=== PATIENT | female | born 1970 | race Caucasian/White ===

== ENCOUNTER 2018-02-10 19:14 | Inpatient (IN) ==
--- NOTE | 2018-02-10 19:44 | Emergency Department Note ---
Disposition Clinical Impression: Acute hepatitis, Biliary obstruction, Jaundice, Cholecystitis Disposition: Admitted As Inpatient Condition: Undetermined Referrals: Piero Jose MD [Primary Care Provider] - Forms: ED Satisfaction Letter, Work/School Release Time of Disposition: 20:48 Abdominal Pain HPI - General Chief Complaint: ED Abdominal Pain Stated Complaint: sent by for abnormal ct/gallbladder" Time Seen by Provider: 02/10/18 19:25 Source: patient Mode of arrival: ambulatory Limitations: no limitations Nursing Notes Reviewed: Yes Vital Signs Reviewed: Yes - History of Present Illness HPI Narrative: 48-year-old female with no previous medical history arrives to the emergency department with complaint of right upper quadrant abdominal pain and skin color change of the course the past 7 days. The patient went to PCP office and they ordered outpatient CAT scan and labs. CAT scan demonstrated concerning findings for acute hepatitis versus cholecystitis versus biliary obstruction as well as elevation in bili [place] with a total bilirubin over 9. The patient is obvious jaundice upon arrival to the emergency department. The patient has associated nausea. She denies any other complaints at this time. She is very nervous about what is going on. The patient last ate roughly 30 minutes prior to arrival at roughly 1900 this evening. Pain Scale: 4 - Related Data Home Medications Medication Instructions Recorded Confirmed Vivitrol 04/14/17 Abilify 07/22/17 Buspar 07/22/17 CloNIDine 07/22/17 Melatonin 07/22/17 Vitamin D 07/22/17 07/22/17 Tylenol 02/03/18 Allergies Allergy/AdvReac Type Severity Reaction Status Date / Time amitriptyline [From Elavil] Allergy Nausea Verified 07/22/17 10:46 All systems ED: reviewed and negative except as stated. Constitutional: Denies: fever, chills, weakness ENT ED: Denies: congestion Cardiovascular: Denies: chest pain Respiratory: Denies: dyspnea Gastrointestinal: Reports: abdominal pain, nausea, vomiting. 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 Psychiatric history: Reports: anxiety, bipolar, depression - Social History Smoking status: Current every day smoker Alcohol use: Reports: none Drug use: Reports: cocaine, opiates, marijuana, IV Drug Use Physical Exam - General Limitations: no limitations General appearance: alert, in no apparent distress - Head Head exam: atraumatic, normocephalic, normal inspection - Eye Eye exam: Present: normal appearance, PERRL, EOMI, scleral icterus - ENT ENT exam: normal exam, normal oropharynx, mucous membranes moist - Neck Neck exam: Present: normal inspection, full ROM, trachea midline - Chest Chest inspection: Present: normal inspection, symmetric chest wall rise - Respiratory Respiratory exam: Present: normal lung sounds bilaterally - Cardiovascular Cardiovascular exam: Present: regular rate, normal rhythm, normal heart sounds - Abdominal Exam Abdominal exam: Present: soft, tenderness (RUQ, Epigastric). Absent: distention , guarding, rebound, rigidity - Extremities Exam Extremities exam: Present: normal inspection, full ROM. Absent: tenderness, pedal edema - Neurological Exam Neurological exam: Present: alert, oriented X3 - Skin Skin exam: Present: warm, dry, intact, normal color, other (Jaundice) Course Vital Signs Temperature 97.5 F L 02/10/18 19:17 Pulse Rate 63 02/10/18 19:17 Respiratory Rate 16 02/10/18 19:17 Blood Pressure 116/75 02/10/18 19:17 O2 Sat by Pulse Oximetry 96 02/10/18 19:17 Temperature 97.5 F L 02/10/18 19:41 Pulse Rate 63 02/10/18 19:41 Respiratory Rate 16 02/10/18 19:41 Blood Pressure 116/75 02/10/18 19:41 O2 Sat by Pulse Oximetry 96 02/10/18 19:41 Oxygen Delivery Oxygen Delivery Room Air Abdominal Pain - MDM Narrative Medical decision making narrative: Patient's workup in the emergency department demonstrates acute findings for concern for biliary obstruction versus cholecystitis versus hepatic dysfunction. The patient's bilirubin is elevated. Patient apparently has a history of IVDU as well as hepatitis upon further questioning. After speaking with Dr. Bolden in general surgery he stated the patient will likely need ERCP. The patient will be admitted to Dr. Bolden service and general surgery requesting a stepdown unit. Orders been placed by Dr. [place] and Gen. surgery. No further recommendations at this time. The patient was made aware and agrees to plan. No further questions or concerns by patient. - Medical Records Medical records reviewed: Yes I reviewed the patient's medical records. - Lab Data Lab results reviewed: Yes I reviewed the patient's lab results. Lab Results 02/10/18 Range/Units 19:37 Total Bilirubin 10.0 H (0.3-1.0) mg/dL Direct Bilirubin 7.1 H (0.0-0.2) mg/dL Indirect Bilirubin 2.9 H (0.0-1.2) mg/dL AST 123 H (13-39) Units/L ALT > 500 H (7-52) Units/L Alkaline Phosphatase 444 H (34-104) Units/L Serum Total Protein 6.5 (6.4-8.9) g/dL Albumin 3.3 L (3.5-5.7) g/dL Globulin 3.2 (2.4-3.5) g/dL Albumin/Globulin Ratio 1.0 L (1.1-2.2) - Radiology Data Radiology results reviewed: Yes I reviewed the patient's radiology results. Gallbladder Ultrasound 02/10/18 19:26 IMPRESSION: Contracted gallbladder with significant gallbladder wall thickening as noted on previous CT. Small quantity of pericholecystic fluid. No acute features are seen. The findings are nonspecific and are likely related to the patient's underlying liver disease. Otherwise unremarkable right upper quadrant ultrasound. The hepatic findings noted by CT are not as clearly seen by ultrasound. D/ / 02/10/2018 20:25:57 Sal Cadet MD / [facility] Interpreting Provider: Sal Cadet MD - EKG Data EKG attestation: Yes I reviewed and interpreted this EKG. EKG results narrative: Heart rate 63 beats for minute. Normal sinus rhythm. No ST elevation or ST depression noted. No acute changes noted.
--- NOTE | 2018-02-10 20:08 | General Surg History&Physical ---
Date of Encounter: 02/10/18 Time of Encounter: 20:05 Assessment and Plan (1) Cholelithiasis Current Visit: Yes Status: Acute 48F with cholecystitis and intrahepatic ductal dilatation, concerning for choledocholithiasis; NPO IVF abx consult GI for ERCP plan for surgery after ERCP The assessment and plan as outlined above was discussed with the patient and/or family members who expressed understanding and agreement. All questions were answered. Qualifiers: Cholelithiasis location: gallbladder Cholecystitis presence: with cholecystitis Cholecystitis acuity: acute and chronic Biliary obstruction: with biliary obstruction Qualified Code(s): K80.13 - Calculus of gallbladder with acute and chronic cholecystitis with obstruction (2) Dilated intrahepatic bile duct Current Visit: Yes Status: Acute The assessment and plan as outlined above was discussed with the patient and/or family members who expressed understanding and agreement. All questions were answered. History of Present Illness Chief complaint: abdominal pain HPI: Ms. Landeros is a 48 year old female with a PMH significant for hep C, anxiety, depression who presents with worsening RUQ/epigastric pain with associated nausea and vomiting. In addition the patient reports pain that radiates to her shoulders. Over the last 7 days the patient states she noticed her skin starting turning yellow. She was evaluated by her PCP who ordered a CT scan, which was evaluated and interpreted by me, which demonstrates periportal edema, cholelithiasis and intrahepatic ductal diliation. Abdominal US still pending; She now presents to the ED for further evaluation; Past Med Surg Social Fam HX - Past Medical History Medical history: other (hepatitis C) Additional medical history: OD 12/31/15. HEP C Psychiatric history: anxiety, bipolar, depression - Past Surgical History Surgical History: no surgical history, other (tubal ligation) - Social History Smoking Status: Current every day smoker Smokeless Tobacco Status: No Alcohol use: none Drug use: cocaine, opiates, marijuana, IV Drug Use - Additional Family History Additional family history: non contributory Medications and Allergies Vivitrol 04/14/17 [History] Abilify 07/22/17 [History] Buspar 07/22/17 [History] CloNIDine 07/22/17 [History] Melatonin 07/22/17 [History] Vitamin D 07/22/17 [History] Tylenol 02/03/18 [History] 3 Allergy/AdvReac Type Severity Reaction Status Date / Time amitriptyline [From [facility]] Allergy Nausea Verified 07/22/17 10:46 Review of Systems All systems PM: The remainder of the systems were reviewed and are negative General Surgery Exam Initial Vital Signs Temp Pulse Resp BP Pulse Ox 97.5 F L 63 16 116/75 96 02/10/18 19:17 02/10/18 19:17 02/10/18 19:17 02/10/18 19:17 02/10/18 19:17 - General physical appearance no distress - Eyes other (scleral icterus) - ENT normocephalic - Neck no lymphadectomy - Respiratory normal expansion, normal respiratory effort - Cardiovascular Cardiovascular exam: Present: RRR - Abdomen Abdomen general surgery: Present: soft, tender Abdominal Tenderness: Present: epigastic, RUQ ((+)duran's sign) - Integumentary Integumentary general surgery: Present: warm and dry, other (jaundice) - Neurologic Present: CN 2-12 grossly intact - Musculoskeletal Present: normal posture - Psychiatric Psychiatric general surgery: Present: A&Ox3 Results - Labs All other labs normal.
[2018-02-10 20:10] LABS: Alanine Aminotransferase > 500 Units/L (7-52); Albumin 3.3 g/dL (3.5-5.7); Alkaline Phosphatase 444 Units/L (34-104); Aspartate Amino Transferase 123 Units/L (13-39); Bilirubin,Direct 7.1 mg/dL (0.0-0.2); Bilirubin,Indirect 2.9 mg/dL (0.0-1.2); Globulin 3.2 g/dL (2.4-3.5); Total Protein 6.5 g/dL (6.4-8.9)
[2018-02-10] MEDS ORDERED: Ondansetron ODT 4 MG TAB.RAPDIS SL PRN (20:30)
--- NOTE | 2018-02-10 20:32 | Emergency Department Note ---
Disposition Clinical Impression: Acute hepatitis Disposition: Still a Patient Forms: ED Satisfaction Letter, Work/School Release General Adult HPI - General Chief complaint: ED Abdominal Pain Stated complaint: sent by for abnormal ct/gallbladder" Time Seen by Provider: 02/10/18 19:25 Source: patient Mode of arrival: ambulatory Limitations: no limitations - History of Present Illness Pain Scale: 4 - Related Data Home Medications Medication Instructions Recorded Confirmed Vivitrol 04/14/17 Abilify 07/22/17 Buspar 07/22/17 CloNIDine 07/22/17 Melatonin 07/22/17 Vitamin D 07/22/17 07/22/17 Tylenol 02/03/18 Allergies Allergy/AdvReac Type Severity Reaction Status Date / Time amitriptyline [From Elavil] Allergy Nausea Verified 07/22/17 10:46 Constitutional: Denies: fever, chills, weakness ENT ED: Denies: congestion Cardiovascular: Denies: chest pain Respiratory: Denies: dyspnea Gastrointestinal: Reports: abdominal pain, nausea, vomiting. 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 I agree with the documented findings, disposition and treatment plan as described except to the extent set forth below. Patient seen with emergency medicine resident Dr. Max Jordan, Please see a copy of his note for details of the H&P, ED evaluation, management and disposition. I have independently evaluated the patient and confirmed appropriate portions of the history and physical exam. Briefly: A 48-year-old female referred by her primary care provider Dr. ESPARZA , for hepatitis. Patient is former IV drug user. Patient is jaundiced. Patient had surgical consult getting screening labs. Disposition pending. Dr. Bolden from general surgery has consulted the patient and will reevaluate Time: 20:31 Vital Signs Temperature 97.5 F L 02/10/18 19:17 Pulse Rate 63 02/10/18 19:17 Respiratory Rate 16 02/10/18 19:17 Blood Pressure 116/75 02/10/18 19:17 O2 Sat by Pulse Oximetry 96 02/10/18 19:17 Temperature 97.5 F L 02/10/18 19:41 Pulse Rate 63 02/10/18 19:41 Respiratory Rate 16 02/10/18 19:41 Blood Pressure 116/75 02/10/18 19:41 O2 Sat by Pulse Oximetry 96 02/10/18 19:41 Oxygen Delivery Oxygen Delivery Room Air Medical Decision Making - Lab Data Lab Results 02/10/18 Range/Units 19:37 Total Bilirubin 10.0 H (0.3-1.0) mg/dL Direct Bilirubin 7.1 H (0.0-0.2) mg/dL Indirect Bilirubin 2.9 H (0.0-1.2) mg/dL AST 123 H (13-39) Units/L ALT > 500 H (7-52) Units/L Alkaline Phosphatase 444 H (34-104) Units/L Serum Total Protein 6.5 (6.4-8.9) g/dL Albumin 3.3 L (3.5-5.7) g/dL Globulin 3.2 (2.4-3.5) g/dL Albumin/Globulin Ratio 1.0 L (1.1-2.2)
[2018-02-10 21:08] LABS: Basophils % 0.4 %; Eosinophils # 0.1 K/mcL (0.0-0.6); Eosinophils % 2.5 %; Hematocrit 40.6 % (35.3-44.9); Hemoglobin 13.2 g/dL (11.5-15.4); Immature Granulocytes % 0.8 % (0-4); Lymphocytes # 1.9 K/mcL (0.6-4.6); Lymphocytes % 36.7 %; Mean Corpuscular HGB Conc 32.5 g/dL (31.6-35.5); Mean Corpuscular Hemoglobin 30.6 pg (28.0-33.3); Mean Platelet Volume 12.4 fL (9.4-12.4); Monocytes # 0.5 K/mcL (0.0-1.3); Neutrophils # 2.5 K/mcL (1.6-8.9); Platelet Count 189 K/mcL (140-400); Red Blood Count 4.32 M/mcL (3.82-4.97); Red Cell Distribution Width 14.7 % (11.5-14.5); Segmented Neutrophils % 49.6 %
[2018-02-10] MEDS: OXYCODONE Oral CONC 10 MG/0.5 ML ORAL.SYG SL PRN (21:15)
[2018-02-10] MEDS: 0.9 % Sodium Chloride 1,000 ML IVC SCH ×2 (21:15→22:42)
[2018-02-10 21:17] LABS: Hepatitis B Surface Antigen Nonreactive (Nonreactive)
[2018-02-10 21:25] LABS: Hepatitis C Virus Antibody Reactive (Nonreactive)
[2018-02-10 21:30] LABS: Platelet Estimate Normal (Normal)
[2018-02-10] MEDS ORDERED: Piperacillin/Tazobactam 3.375 GM VIAL ONE (22:34)
[2018-02-10] MEDS: Nicotine 14 MG PATCH.TD24 TD SCH (22:44)
[2018-02-10] MEDS: Piperacillin/Tazobactam 3.375 GM in 0.9 % Sodium Chloride Mini Bag 100 ML IVPB SCH (22:45)
[2018-02-10] MEDS: D5% in Lactated Ringers 1,000 ML IVC SCH (23:40)
[2018-02-11 00:22] LABS: Hepatitis B Core IgM Nonreactive (Nonreactive)
[2018-02-11 00:27] LABS: Hepatitis A Antibody IgM Reactive (Nonreactive)
[2018-02-11] MEDS: OXYCODONE Oral CONC 10 MG/0.5 ML ORAL.SYG SL PRN ×3 (03:36→12:15)
[2018-02-11] MEDS: *HR* Enoxaparin 40 MG/0.4 ML SYRINGE SQ SCH (05:25)
[2018-02-11] MEDS: Piperacillin/Tazobactam 3.375 GM in 0.9 % Sodium Chloride Mini Bag 100 ML IVPB SCH ×3 (08:11→23:57)
--- NOTE | 2018-02-11 09:13 | General Surgery Progress Note ---
Date of Encounter: 02/11/18 Time of Encounter: 09:13 - Assessment and Plan (1) Cholelithiasis Current Visit: Yes Status: Acute 48F with choledocholithiasis with acute cholecystitis; plan for ERCP today if unable to get done to day, will transfer to OSH cont IV abx keep NPO may need TPN Qualifiers: Cholelithiasis location: gallbladder Cholecystitis presence: with cholecystitis Cholecystitis acuity: acute and chronic Biliary obstruction: with biliary obstruction Qualified Code(s): K80.13 - Calculus of gallbladder with acute and chronic cholecystitis with obstruction (2) Dilated intrahepatic bile duct Current Visit: Yes Status: Acute see above Subjective Patient reports: no new complaints, afebrile Objective Vital Signs - Last 8 Hours Temp Pulse Resp BP Pulse Ox 02/11/18 08:20 94 02/11/18 06:56 97.9 F 59 20 110/68 94 02/11/18 05:16 97.9 F 63 16 117/76 97 Intake and Output 02/10/18 02/11/18 02/11/18 23:59 07:59 15:59 Intake Total 1999 100 / 100 Output Total 0 / 0 800 / 800 Balance 1999 -700 / -700 Intake: IV Fluids 1999 100 / 100 0.9 % Sodium Chloride 1,000 ML 1999 @ 999 mls/hr IVC .Q1H1M [facility]I Rx# :[id number] Zosyn 3.375 GM In 0.9 % Sodium 100 / 100 Chloride (Mini-Bag +) 100 ML @ 25 mls/hr IVPB Q8HR KORI Rx#: [id number] Oral 0 / 0 0 / 0 Output: Urine 0 / 0 800 / 800 Other: Weight 70.9 kg Blood Glucose* 98 91 - General physical appearance no distress, jaundice - Eyes other (scleral icterus) - Respiratory normal expansion, normal respiratory effort - Cardiovascular Cardiovascular exam: Present: RRR - Abdomen Abdomen: Present: soft, tender Abdominal Tenderness: epigastic, RUQ - Neurologic CN 2-12 grossly intact - Psychiatric oriented to time, oriented to person, oriented to place - Labs 02/10/18 19:37 - VTE Documentation of Mechanical Device: Intermittent pneumatic compression device Consult Discharge Plan - Plan Referrals: Piero Jose MD [Primary Care Provider] -
[2018-02-11] MEDS: D5% in Lactated Ringers 1,000 ML IVC SCH ×2 (09:24→19:34)
--- NOTE | 2018-02-11 10:38 | Gastroenterology Consult Note ---
Date of Encounter: 02/11/18 Time of Encounter: 09:15 - Assessment and plan (1) Acute hepatitis Current Visit: Yes Status: Acute Assessment and plan: 48 year old female who presents with abdominal pain, nausea and vomiting. Labs were positive for Hep C and Hep A. Dr Mendez has reviewed us and CT and jaundice and LFT elevation is likely due to acute hepatitis, no ERCP planned at this time. Will do stat MRCP to rule out CBD obstruction. Recommend symptomatic treatment at this time, monitor LFTs, advise pt to avoid hepatotoxic meds and alcohol. (2) Jaundice Current Visit: Yes Status: Acute (3) Elevated LFTs Current Visit: Yes Status: Acute - Time Spent With Patient Total time spent is greater than 50% in coordination of care (as documented) at patient's floor/unit and/or counseling patient: GI History of Present Illness - Data of Consult Patient: new to practice Consult date: 02/11/18 Requesting Physician: Ronaldo Bolden MD - Consult Narrative Reason for consult: jaundice/elevated lfts History of present illness: Ms. Landeros is a 48 year old female with a PMH significant for hep C, anxiety, depression who presents with worsening RUQ/epigastric pain with associated nausea and vomiting. In addition the patient reports pain that radiates to her shoulders. Over the last 7 days the patient states she noticed her skin starting turning yellow. She was evaluated by her PCP who ordered a CT scan, which showed "hepatomegaly with moderate periportal edema and significant gallbladder wall thickening. Overall findings are nonspecific but can be seen in the setting of acute hepatitis given history of elevated LFTs. The gallbladder wall thickening could be reactive to underlying liver disease. However,acute cholecystitis cannot be excluded. Splenomegaly. the main portal vein caliber is mildly dilated, suggestive of portal hypertension". Abdominal US was done after admission that showed contracted gallbladder and no CBD dilation. Total bili was 10. Hepatitis A and Hep C were both reactive. The patient states she has been sick for the past week with nausea, vomiting, and abdominal pain. She denies diarrhea, constipation, bloody or tarry stools. Past Med Surg Social Fam HX - Past Medical History Medical history: no medical history Additional medical history: anxiety, depression Psychiatric history: anxiety, bipolar, depression - Past Surgical History Surgical History: no surgical history, other (tubal ligation) Additional surgical history: tubal, - Social History Smoking Status: Current every day smoker Packs per day: 1 Smokeless Tobacco Status: No Alcohol use: none Drug use: cocaine, opiates, marijuana, IV Drug Use Review of Systems: GI: as per [place] GENERAL: denies fever, has some chills EYES: yellow discoloration ENT: denies pain with swallowing or difficulty swallowing CARDIO: denies chest pain, palpitations RESP: No Shortness of breath with exertion : reports dark urine NEURO: denies any weakness HEME: Denies any bruising MS: denies joint pain, joint swelling or back pain. DERM: denies rash or itching PSYCH: history of anxiety and depression - Constitutional Vitals: Temp Pulse Resp BP Pulse Ox 97.9 F 59 20 110/68 94 02/11/18 06:56 02/11/18 06:56 02/11/18 06:56 02/11/18 06:56 02/11/18 08:20 Exam: CONSTITUTIONAL:~drowsy, no acute distress.~HEAD:~normocephalic.~EYES:~ jaundice. ~NECK:~no obvious swelling.~HEART:~regular rate and rhythm, no murmurs.~LUNGS:~ bilateral fair air entry.~ABDOMEN:~non distended, soft, difusely tender, deep palpation limited by pt tolerance.~RECTAL EXAM:~Deferred.~EXTREMITIES:~no clubbing, cyanosis trace BLE edema.~SKIN:~jaundice noted~NEUROLOGIC:~no obvious focal defect.~~~~ Results - Labs CBC & Chem 7: 02/10/18 19:37 Labs: Entire Visit Hgb 13.2 g/dL (11.5-15.4) 02/10/18 19:37 Hct 40.6 % (35.3-44.9) 02/10/18 19:37 Total Bilirubin 10.0 mg/dL (0.3-1.0) H 02/10/18 19:37 AST 123 Units/L (13-39) H 02/10/18 19:37 ALT > 500 Units/L (7-52) H 02/10/18 19:37 Consult Discharge Plan - Plan Referrals: Piero Jose MD [Primary Care Provider] -
--- NOTE | 2018-02-11 13:51 | Event Note ---
Date of Encounter: 02/11/18 Time of Encounter: 13:[address] Bolden. OK for patient to have clear liquid diet. Pt will need interval cholecystectomy when acute hepatitis resolved. Will consult IM for primary management. Further recommendations per GI.
--- NOTE | 2018-02-11 14:06 | Event Note ---
Date of Encounter: 02/11/18 Time of Encounter: 14:[address] Bolden. OK for patient to have clear liquid diet, advanced as tolerated. Pt will need interval cholecystectomy when acute hepatitis resolved. Recommend follow-up with Dr. Bolden in 2 weeks. Appointment is scheduled for 02/21/2018 at 11 AM. She is further recommended to be discharged on PO antibiotics ( augmentin if ok with primary). Further recommendations per GI. At Dr. Bolden request, Will consult IM for primary management; okay to discharge when okay with primary team. - Patient Status Disposition: Still a Patient Condition: Undetermined - Discharge Instructions Follow Up With: Piero Jose MD [Primary Care Provider] - Ronaldo Bolden MD [Non-Partnered Physician] - 02/21/18 11:00 am - Diet and Activity Activity: increase activity as tolerated Diet: advance to your usual diet
--- NOTE | 2018-02-11 14:41 | Internal Medicine Consult Note ---
Date of Encounter: 02/11/18 Time of Encounter: 14:38 - Assessment and plan (1) Acute hepatitis Current Visit: Yes Status: Acute Assessment and plan: The patient can be treated conservatively with IV fluids. We will repeat LFTs. Patient can be discharged safely tomorrow if she shows signs of tolerating diet and her liver enzymes continued to improve. (2) Cholelithiasis Current Visit: Yes Status: Acute Assessment and plan: Management per surgery. Currently on Zosyn. Plans for outpatient follow-up for possible cholecystectomy. Qualifiers: Cholelithiasis location: gallbladder Cholecystitis presence: with cholecystitis Cholecystitis acuity: acute and chronic Biliary obstruction: with biliary obstruction Qualified Code(s): K80.13 - Calculus of gallbladder with acute and chronic cholecystitis with obstruction - Time Spent With Patient Total time spent is greater than 50% in coordination of care (as documented) at patient's floor/unit and/or counseling patient: Internal Medicine - CN: HPI - Data of Consult Consult date: 02/11/18 Requesting Physician: Ronaldo Bolden MD - Consult Narrative Reason for consult: Hepatitis A History of present illness: Ms. Landeros is a 48 year old female who has a history of hepatitis C, anxiety, depression who is admitted under the surgery service for right upper quadrant/ epigastric pain and was diagnosed with acalculous cholecystitis and was found to have acute hepatitis A. Her liver enzymes are elevated in accordance with current active hepatitis C infection. The patient's symptoms include generalized abdominal pain with associated nausea and vomiting. She has been jaundiced and noticed a darkening of her stools and urine. About 12 days ago the patient went on a picnic at a [employer] and had chicken and dairy products. She felt ill the following day. She continued to worsen throughout the week and ended up in the ER where she was admitted under the surgery service. She has been on IV Zosyn for cholecystitis and has been receiving IV fluids. The patient has never had treatment for hepatitis C. Denies headache, blurry vision , fevers, chills, chest pain, shortness of breath, diarrhea, constipation, urinary symptoms, or neurological symptoms. Past Med Surg Social Fam HX - Past Medical History Medical history: no medical history Additional medical history: anxiety, depression Psychiatric history: anxiety, bipolar, depression - Past Surgical History Surgical History: no surgical history, other (tubal ligation) Additional surgical history: tubal, - Social History Smoking Status: Current every day smoker Packs per day: 1 Smokeless Tobacco Status: No Alcohol use: none Drug use: cocaine, opiates, marijuana, IV Drug Use Review of systems: All systems reviewed are negative except for as mentioned above Internal Medicine - CN: Meds 3 Allergy/AdvReac Type Severity Reaction Status Date / Time amitriptyline [From Elavil] Allergy Nausea Verified 07/22/17 10:46 Internal Medicine - CN: Exam - Constitutional Vitals: Temp Pulse Resp BP Pulse Ox 97.7 F 68 15 104/64 93 02/11/18 11:49 02/11/18 11:49 02/11/18 11:49 02/11/18 11:49 02/11/18 11:49 Exam: GEN: NAD HEENT: AT, NC, No cyanosis, oral mucosa is moist, No JVD Lymphatics: No lymphadenoapthy Eyes: Extrocular muscles intact, jaundice CVS:RRR. S1, S2, No m/r/g RESP: CTAB ABD: Soft, generalized tenderness with no rebound, ND, +BS EXT: No edema, No rashes, 2+ DP NEURO: Nonfocal, CN II-XII intact, No focal motor or sensory deficits Psych: Cooperative, Not anxious or depressed Internal Medicine - CN: Reslt - Labs CBC & Chem 7: 02/10/18 19:37 - Impressions Impressions Abdomen MRI 02/11/18 10:05 IMPRESSION: 1. Findings presumably related to acalculous cholecystitis. 2. Diffuse periportal edema may be reactive or related to hepatitis. 3. Trace bilateral pleural effusion and small volume ascites. 4. No choledocholithiasis or bile duct dilatation is evident. D/ / Jules Flores / Jules Flores Interpreting Provider: Jules Flores Consult Discharge Plan - Plan Referrals: Ronaldo Bolden MD [Non-Partnered Physician] - 02/21/18 11:00 am Piero Jose MD [Primary Care Provider] -
[2018-02-11 15:12] LABS: Basophils % 0.4 %; Eosinophils # 0.2 K/mcL (0.0-0.6); Hematocrit 39.2 % (35.3-44.9); Hemoglobin 12.8 g/dL (11.5-15.4); Immature Granulocytes % 0.7 % (0-4); Lymphocytes # 1.8 K/mcL (0.6-4.6); Mean Corpuscular HGB Conc 32.7 g/dL (31.6-35.5); Mean Corpuscular Hemoglobin 31.4 pg (28.0-33.3); Mean Corpuscular Volume 96.1 fL (83.0-100.0); Mean Platelet Volume 11.4 fL (9.4-12.4); Monocytes # 0.5 K/mcL (0.0-1.3); Monocytes % 10.2 %; Platelet Count 143 K/mcL (140-400); Red Blood Count 4.08 M/mcL (3.82-4.97); Red Cell Distribution Width 15.4 % (11.5-14.5); Segmented Neutrophils % 44.7 %
[2018-02-11 15:24] LABS: Alanine Aminotransferase 329 Units/L (7-52); Albumin 2.3 g/dL (3.5-5.7); Albumin/Globulin Ratio 0.8 (1.1-2.2); Alkaline Phosphatase 330 Units/L (34-104); Aspartate Amino Transferase 68 Units/L (13-39); BUN/Creatinine Ratio 6 (6-26); Bilirubin,Total 8.6 mg/dL (0.3-1.0); Blood Urea Nitrogen 4 mg/dL (6-20); Carbon Dioxide 26 mEq/L (23-29); Chloride 104 mEq/L (98-107); Globulin 2.9 g/dL (2.4-3.5); Glucose 238 mg/dL (70-105); Osmolality,Calculated 285 (280-300); Potassium 3.5 mEq/L (3.5-5.1); Sodium 135 mEq/L (136-145); Total Protein 5.2 g/dL (6.4-8.9); eGFR For African Americans > 60 (> 60); eGFR For Non-African Americans > 60 (> 60)
[2018-02-11 15:38] LABS: Platelet Estimate Normal (Normal); Reactive Lymphocytes Present (Not Present)
[2018-02-11] MEDS: Nicotine 14 MG PATCH.TD24 TD SCH (19:35)
[2018-02-12] MEDS: OXYCODONE Oral CONC 10 MG/0.5 ML ORAL.SYG SL PRN (01:43)
[2018-02-12] MEDS: D5% in Lactated Ringers 1,000 ML IVC SCH (03:45)
[2018-02-12 04:02] LABS: Basophils % 0.4 %; Eosinophils # 0.2 K/mcL (0.0-0.6); Eosinophils % 4.5 %; Hematocrit 33.8 % (35.3-44.9); Immature Granulocytes % 0.8 % (0-4); Lymphocytes # 2.5 K/mcL (0.6-4.6); Lymphocytes % 46.6 %; Mean Corpuscular HGB Conc 32.8 g/dL (31.6-35.5); Mean Corpuscular Hemoglobin 30.7 pg (28.0-33.3); Mean Corpuscular Volume 93.6 fL (83.0-100.0); Mean Platelet Volume 11.5 fL (9.4-12.4); Monocytes # 0.5 K/mcL (0.0-1.3); Monocytes % 9.8 %; Platelet Count 228 K/mcL (140-400); Red Blood Count 3.61 M/mcL (3.82-4.97); Red Cell Distribution Width 15.5 % (11.5-14.5); Segmented Neutrophils % 37.9 %
[2018-02-12 04:11] LABS: Hemoglobin 11.1 g/dL (11.5-15.4)
[2018-02-12 04:27] LABS: Alanine Aminotransferase 276 Units/L (7-52); Albumin 2.5 g/dL (3.5-5.7); Alkaline Phosphatase 341 Units/L (34-104); Aspartate Amino Transferase 57 Units/L (13-39); BUN/Creatinine Ratio 7 (6-26); Bilirubin,Direct 5.6 mg/dL (0.0-0.2); Bilirubin,Indirect 2.4 mg/dL (0.0-1.2); Blood Urea Nitrogen 4 mg/dL (6-20); Calcium 7.9 mg/dL (8.6-10.3); Carbon Dioxide 28 mEq/L (23-29); Chloride 99 mEq/L (98-107); Globulin 2.6 g/dL (2.4-3.5); Glucose 135 mg/dL (70-105); Osmolality,Calculated 275 (280-300); Potassium 3.1 mEq/L (3.5-5.1); Sodium 133 mEq/L (136-145); Total Protein 5.1 g/dL (6.4-8.9); eGFR For African Americans > 60 (> 60); eGFR For Non-African Americans > 60 (> 60)
[2018-02-12 04:38] LABS: Platelet Estimate Normal (Normal); Reactive Lymphocytes Present (Not Present)
[2018-02-12] MEDS: *HR* Enoxaparin 40 MG/0.4 ML SYRINGE SQ SCH (06:26)
[2018-02-12 06:58] VITALS: BP 93/56
[2018-02-12] MEDS: Piperacillin/Tazobactam 3.375 GM in 0.9 % Sodium Chloride Mini Bag 100 ML IVPB SCH (09:39)
--- NOTE | 2018-02-12 09:57 | Discharge Summary ---
- NOTES TO OUTPATIENT PROVIDER Notes to Outpatient Provider: Pt admitted due to RUQ pain and acalculous cholecystitis. She was found to have acute hep A. She will follow with surgery for cholecystectomy in the future. She will have a brief course of abx. 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 Date of Encounter: 02/12/18 Time of Encounter: 09:55 - Discharge Diagnosis (1) Acute hepatitis A Priority: Primary Status: Acute (2) Cholelithiasis Priority: Secondary Status: Acute Qualifiers: Cholelithiasis location: gallbladder Cholecystitis presence: with cholecystitis Cholecystitis acuity: acute and chronic Biliary obstruction: with biliary obstruction Qualified Code(s): K80.13 - Calculus of gallbladder with acute and chronic cholecystitis with obstruction (3) Hepatitis C Priority: Secondary Status: Chronic Qualifiers: Viral hepatitis chronicity: chronic Hepatic coma status: without hepatic coma Qualified Code(s): B18.2 - Chronic viral hepatitis C (4) Tobacco abuse Priority: Secondary Status: Chronic Assessment and Plan: Cessation counselling (5) Polysubstance abuse Priority: Secondary Status: Chronic Hospital course: Ms. Landeros is a 48 year old female with hx of hepatitis C presented to ED with abdominal pain. She was found to have acalculous cholecystitis and admitted to surgery service. Ms Landeros was subsequently found to have acute hepatitis A as well. Symptoms had been present about 10-12 days. She was seen by GI service and abdominal MRI did not show obstruction. She was evaluated by medicine service and transferred to our care. Today she has a low grade temp but her liver enzymes are improving. She is tolerating diet and nausea seems better. She will be discharged home. She was informed that management is supportive at this time. She should continue fluids and OTC meds (motrin) for pain. Return for worsening symptoms. 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 I have given her Augmentin to complete abx for gallbladder and instruction on diet for gallbladder disease. Discharge discussed with: patient Time spent discussing smoking cessation with patient: 3 to 10 minutes - Time Spent with Patient Total time spent providing and/or coordinating discharge services: 41min - Discharge Medications Prescriptions: Ibuprofen [Motrin] 400 mg PO Q6HR PRN 7 Days #30 tablet PRN Reason: Pain Ondansetron ODT [Zofran ODT] 4 mg SL Q8HR PRN #20 tab.rapdis PRN Reason: Nausea And Vomiting Amoxicillin/Clavulanate [Augmentin] 875 mg PO BIDWM #11 tablet Home Medications: Amoxicillin/Clavulanate [Augmentin] 875 mg PO BIDWM #11 tablet 02/12/18 [Rx] Ibuprofen [Motrin] 400 mg PO Q6HR PRN 7 Days #30 tablet 02/12/18 [Rx] Nicotine Patch [Nicoderm] 14 mg TD HS patch.td24 02/12/18 [Rx] Ondansetron ODT [Zofran ODT] 4 mg SL Q8HR PRN #20 tab.rapdis 02/12/18 [Rx] Allergies/Adverse Reactions: 3 Allergy/AdvReac Type Severity Reaction Status Date / Time amitriptyline [From Elavil] Allergy Nausea Verified 07/22/17 10:46 Date of admission: 02/10/18 21:09 Primary care physician: Piero Jose MD Consults: 02/10/18 22:32 Consult to Nutrition [CONS] Routine Comment: Consulting Provider: NUTRITION Reason for Dietary Consult: MST Score 02/11/18 13:43 Consult to Hospitalist [CONS] Routine Consulting Provider: Hospitalist Kia Reason for Consult: acute hepatitis Time Notified: 13:44 Call Completed: Yes Discharging clinician: Dante Phillips Anticipated date of discharge: 02/12/18 - Constitutional Vitals: Temp Pulse Resp BP Pulse Ox 99.7 F H 79 14 93/56 92 02/12/18 06:53 02/12/18 06:53 02/12/18 06:53 02/12/18 06:53 02/12/18 06:53 General appearance: Present: A&O X 3 - Head Head exam: Present: normocephalic - Eye Eye exam: Present: EOMI, scleral icterus - ENT ENT exam: Present: mucous membranes dry - Respiratory Respiratory exam: Present: CTAB. Absent: rales, rhonchi, wheezes - Cardiovascular Cardiovascular exam: Present: RRR. Absent: tachycardia - GI/Abdominal GI/Abdominal exam: Present: normal bowel sounds, soft. Absent: tenderness - Extremities Exam Extremities exam: Present: warm. Absent: tenderness - Neurological Exam Neurological exam: Present: alert, oriented X3 - Skin Skin exam: Present: dry, warm Additional comments: Jaundice noted. - Patient Status Disposition: Home, Self-Care Condition: Fair Functional capacity at discharge: independent ambulation Overall status at discharge: patient is progressing back to baseline - Discharge Instructions Follow Up With: Ronaldo Bolden MD [Non-Partnered Physician] - 02/21/18 11:00 am Piero Jose MD [Primary Care Provider] - Forms: Inpatient Work/School Release - Diet and Activity Activity: increase activity as tolerated Diet: advance to your usual diet (Please avoid fatty foods that will affect gallbladder.) - VTE Documentation of Mechanical Device: Intermittent pneumatic compression device
[2018-02-12] MEDS ORDERED: Ibuprofen 400 MG TABLET PO PRN (10:13)
--- NOTE | 2018-02-12 11:17 | Electrocardiograph Report ---
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
== END 2018-02-12 14:52 | disposition home or self-care (01) ==
LOC: 3ANU 19:14 → EMEROO 19:14 → OBSVTOIN 21:09 → 3ANU 21:43
PROVIDERS: ADMIT Surgery; ATTEND Surgery

== ENCOUNTER 2019-09-07 21:28 | Inpatient (IN) ==
[2019-09-07] MEDS ORDERED: cefTRIAXone 1,000 MG in Water for inj. (sterile) 10 ML IVP ONE (21:57)
[2019-09-07] MEDS ORDERED: Azithromycin 500 MG in 0.9 % Sodium Chloride 250 ML IVPB ONE (21:57)
[2019-09-07 22:21] LABS: Hematocrit 33.5 % (35.3-44.9); Hemoglobin 11.8 g/dL (11.5-15.4); Mean Corpuscular HGB Conc 35.2 g/dL (31.6-35.5); Mean Corpuscular Hemoglobin 31.6 pg (28.0-33.3); Mean Corpuscular Volume 89.6 fL (83.0-100.0); Mean Platelet Volume 9.3 fL (9.4-12.4); Platelet Count 181 K/mcL (140-400); Red Blood Count 3.74 M/mcL (3.82-4.97); Red Cell Distribution Width 12.1 % (11.5-14.5); White Blood Count 23.9 K/mcL (4.3-11.1)
[2019-09-07] MEDS: 0.9 % Sodium Chloride 1,000 ML IVC SCH ×2 (22:25→23:27)
[2019-09-07 22:39] LABS: Alanine Aminotransferase 17 Units/L (7-52); Albumin 3.7 g/dL (3.5-5.7); Albumin/Globulin Ratio 1.1 (1.1-2.2); Alkaline Phosphatase 132 Units/L (34-104); Aspartate Amino Transferase 16 Units/L (13-39); BUN/Creatinine Ratio 22 (6-26); Bilirubin,Direct 0.2 mg/dL (0.0-0.2); Bilirubin,Indirect 0.6 mg/dL (0.0-1.0); Bilirubin,Total 0.8 mg/dL (0.3-1.0); Blood Urea Nitrogen 22 mg/dL (6-20); Calcium 9.1 mg/dL (8.6-10.3); Carbon Dioxide 25 mEq/L (23-29); Chloride 96 mEq/L (98-107); Globulin 3.4 g/dL (2.4-3.5); Glucose 93 mg/dL (70-105); Lipase 3 Units/L (11-82); Magnesium 1.6 mg/dL (1.6-2.6); Osmolality,Calculated 275 (280-300); Potassium 3.1 mEq/L (3.5-5.1); Sodium 131 mEq/L (136-145); Total Protein 7.1 g/dL (6.4-8.9); Troponin I < 0.03 ng/mL (< 0.04); eGFR For African Americans > 60 (> 60); eGFR For Non-African Americans 60 (> 60)
[2019-09-07 22:40] LABS: Monocytes # 1.4 K/mcL (0.0-1.3); Neutrophils # 21.5 K/mcL (1.6-8.9)
[2019-09-07 22:41] LABS: Platelet Estimate Normal (Normal)
[2019-09-07 22:46] LABS: Bacteria,Urine None Seen per hpf (None-Few); Bilirubin,Urine Small (Negative); Blood,Urine Negative (Negative); Clarity,Urine Cloudy (Clear); Color,Urine Dark Yellow (Yellow); Glucose,Urine (UA) Normal (Normal); Hyaline Casts,Urine Moderate per lpf (None-Few); Ketones,Urine Trace mg/dL (Negative); Leukocyte Esterase,Urine Small (Negative); Nitrite,Urine Negative (Negative); PH,Urine 5.5 pH Units (5.0-8.0); Protein,Urine 100 mg/dL (Neg-Trace); Specific Gravity,Urine 1.028 (1.010-1.025); Squamous Epithelial Cell,Urine Many per lpf (None-Few); Urobilinogen,Urine Normal (Normal); WBC,Urine 15-30 per hpf (0-3)
[2019-09-07] MEDS ORDERED: Naloxone 0.4 MG/ML INJ IVP PRN (23:38)
[2019-09-07] MEDS ORDERED: Ondansetron 4 MG/2 ML VIAL IVP PRN (23:38)
[2019-09-07] MEDS ORDERED: Isovue-370 500 ML BOTTLE IVP ONE ×2 (23:45→23:48)
[2019-09-08] MEDS: Piperacillin/Tazobactam 3.375 GM in 0.9 % Sodium Chloride Mini Bag 100 ML IVPB SCH ×3 (01:59→16:07)
[2019-09-08] MEDS: 0.9 % Sodium Chloride 1,000 ML IVC SCH ×2 (02:00→16:07)
[2019-09-08 02:03] LABS: Hematocrit 30.4 % (35.3-44.9); Hemoglobin 10.4 g/dL (11.5-15.4); Mean Corpuscular HGB Conc 34.2 g/dL (31.6-35.5); Mean Corpuscular Hemoglobin 30.9 pg (28.0-33.3); Mean Corpuscular Volume 90.2 fL (83.0-100.0); Mean Platelet Volume 9.5 fL (9.4-12.4); Platelet Count 163 K/mcL (140-400); Red Blood Count 3.37 M/mcL (3.82-4.97); Red Cell Distribution Width 12.2 % (11.5-14.5); White Blood Count 19.1 K/mcL (4.3-11.1)
[2019-09-08 02:21] LABS: Alanine Aminotransferase 15 Units/L (7-52); Albumin 3.2 g/dL (3.5-5.7); Alkaline Phosphatase 120 Units/L (34-104); Aspartate Amino Transferase 15 Units/L (13-39); BUN/Creatinine Ratio 22 (6-26); Bilirubin,Direct 0.2 mg/dL (0.0-0.2); Bilirubin,Indirect 0.4 mg/dL (0.0-1.0); Bilirubin,Total 0.6 mg/dL (0.3-1.0); Blood Urea Nitrogen 17 mg/dL (6-20); Calcium 8.2 mg/dL (8.6-10.3); Carbon Dioxide 25 mEq/L (23-29); Chloride 102 mEq/L (98-107); Globulin 3.1 g/dL (2.4-3.5); Glucose 98 mg/dL (70-105); Osmolality,Calculated 278 (280-300); Sodium 133 mEq/L (136-145); Total Protein 6.3 g/dL (6.4-8.9); eGFR For African Americans > 60 (> 60); eGFR For Non-African Americans > 60 (> 60)
[2019-09-08 02:34] LABS: Lymphocytes # 2.3 K/mcL (0.6-4.6); Monocytes # 0.8 K/mcL (0.0-1.3)
[2019-09-08] MEDS: *HR* Heparin 5,000 UNIT/ML VIAL SQ SCH ×2 (06:56→18:07)
[2019-09-08] MEDS ORDERED: *HR* FentaNYL (PF) 100 MCG/2 ML VIAL IVP ONE (07:17)
[2019-09-08 11:35] LABS: Adenovirus Not Detected (Not Detect); Bordetella Pertussis Not Detected (Not Detect); Chlamydophila pneumoniae Not Detected (Not Detect); Coronavirus 229E Not Detected (Not Detect); Coronavirus HKU1 Not Detected (Not Detect); Coronavirus NL63 Not Detected (Not Detect); Coronavirus OC43 Not Detected (Not Detect); Human Metapneumovirus Not Detected (Not Detect); Human Rhinovirus/Enterovirus Not Detected (Not Detect); Influenza A Subtype 2009 H1 Not Detected (Not Detect); Influenza B Not Detected (Not Detect); Mycoplasma pneumoniae Not Detected (Not Detect); Parainfluenza Virus 1 Not Detected (Not Detect); Parainfluenza Virus 2 Not Detected (Not Detect); Parainfluenza Virus 3 Not Detected (Not Detect); Parainfluenza Virus 4 Not Detected (Not Detect); Respiratory Syncytial Virus Not Detected (Not Detect)
[2019-09-08] MEDS ORDERED: Nicotine 21 MG PATCH.TD24 TD STA (14:36)
[2019-09-08] MEDS: hydrOXYzine pamoate 25 MG CAPSULE PO PRN ×2 (16:07→21:42)
[2019-09-08 17:36] LABS: Acinetobacter baumannii by PCR Not Detected (Not Detect); Candida albicans by PCR Not Detected (Not Detect); Candida glabrata by PCR Not Detected (Not Detect); Candida krusei by PCR Not Detected (Not Detect); Candida parapsilosis by PCR Not Detected (Not Detect); Candida tropicalis by PCR Not Detected (Not Detect); Enterobacter cloacae Cmplx PCR Not Detected (Not Detect); Enterobacteriaceae by PCR Not Detected (Not Detect); Enterococcus by PCR Not Detected (Not Detect); Escherichia coli by PCR Not Detected (Not Detect); Klebsiella oxytoca by PCR Not Detected (Not Detect); Klebsiella pneumoniae by PCR Not Detected (Not Detect); Proteus by PCR Not Detected (Not Detect); Pseudomonas aeruginosa by PCR Not Detected (Not Detect); Serratia marcescens by PCR Not Detected (Not Detect); Staphylococcus aureus by PCR Not Detected (Not Detect); Staphylococcus by PCR Not Detected (Not Detect); Streptococcus agalactiae(B)PCR Not Detected (Not Detect); Streptococcus pneumoniae PCR DETECTED (Not Detect); Streptococcus pyogenes (A) PCR Not Detected (Not Detect); blaKPC Carbapenem-Resist Gene Not Detected (Not Detect); mecA Methicillin-Resist Gene Not Detected (Not Detect); vanA/B Vancomycin-Resist Genes Not Detected (Not Detect)
[2019-09-08] MEDS: Acetaminophen 325 MG TABLET PO PRN (21:39)
[2019-09-09] MEDS: Piperacillin/Tazobactam 3.375 GM in 0.9 % Sodium Chloride Mini Bag 100 ML IVPB SCH ×3 (00:04→16:52)
[2019-09-09 03:03] LABS: Basophils % 0.4 %; Eosinophils # 0.1 K/mcL (0.0-0.6); Eosinophils % 0.6 %; Hematocrit 29.6 % (35.3-44.9); Hemoglobin 10.1 g/dL (11.5-15.4); Immature Granulocytes % 0.7 % (0-4); Lymphocytes # 1.7 K/mcL (0.6-4.6); Lymphocytes % 15.5 %; Mean Corpuscular HGB Conc 34.1 g/dL (31.6-35.5); Mean Corpuscular Hemoglobin 31.2 pg (28.0-33.3); Mean Corpuscular Volume 91.4 fL (83.0-100.0); Mean Platelet Volume 11.1 fL (9.4-12.4); Monocytes # 0.7 K/mcL (0.0-1.3); Monocytes % 6.6 %; Neutrophils # 8.5 K/mcL (1.6-8.9); Platelet Count 137 K/mcL (140-400); Red Blood Count 3.24 M/mcL (3.82-4.97); Red Cell Distribution Width 12.3 % (11.5-14.5); Segmented Neutrophils % 76.2 %; White Blood Count 11.2 K/mcL (4.3-11.1)
[2019-09-09 03:15] LABS: Alanine Aminotransferase 14 Units/L (7-52); Albumin 3.3 g/dL (3.5-5.7); Alkaline Phosphatase 131 Units/L (34-104); Aspartate Amino Transferase 18 Units/L (13-39); BUN/Creatinine Ratio 12 (6-26); Bilirubin,Total 0.4 mg/dL (0.3-1.0); Blood Urea Nitrogen 8 mg/dL (6-20); Calcium 8.2 mg/dL (8.6-10.3); Carbon Dioxide 23 mEq/L (23-29); Chloride 106 mEq/L (98-107); Globulin 3.3 g/dL (2.4-3.5); Glucose 94 mg/dL (70-105); Osmolality,Calculated 288 (280-300); Sodium 140 mEq/L (136-145); Total Protein 6.6 g/dL (6.4-8.9); eGFR For African Americans > 60 (> 60); eGFR For Non-African Americans > 60 (> 60)
[2019-09-09] MEDS: *HR* Heparin 5,000 UNIT/ML VIAL SQ SCH ×2 (05:38→16:52)
[2019-09-09] MEDS: Acetaminophen 325 MG TABLET PO PRN (05:42)
[2019-09-09] MEDS ORDERED: *HR* LORazepam 2 MG/ML VIAL IVP ONE (12:44)
[2019-09-09 17:54] LABS: Acinetobacter baumannii by PCR Not Detected (Not Detect); Candida albicans by PCR Not Detected (Not Detect); Candida glabrata by PCR Not Detected (Not Detect); Candida krusei by PCR Not Detected (Not Detect); Candida parapsilosis by PCR Not Detected (Not Detect); Candida tropicalis by PCR Not Detected (Not Detect); Enterobacter cloacae Cmplx PCR Not Detected (Not Detect); Enterococcus by PCR Not Detected (Not Detect); Escherichia coli by PCR Not Detected (Not Detect); Klebsiella oxytoca by PCR Not Detected (Not Detect); Klebsiella pneumoniae by PCR Not Detected (Not Detect); Proteus by PCR Not Detected (Not Detect); Pseudomonas aeruginosa by PCR Not Detected (Not Detect); Serratia marcescens by PCR DETECTED (Not Detect); Staphylococcus aureus by PCR Not Detected (Not Detect); Staphylococcus by PCR Not Detected (Not Detect); Streptococcus agalactiae(B)PCR Not Detected (Not Detect); Streptococcus by PCR Not Detected (Not Detect); Streptococcus pneumoniae PCR Not Detected (Not Detect); Streptococcus pyogenes (A) PCR Not Detected (Not Detect); blaKPC Carbapenem-Resist Gene Not Detected (Not Detect)
[2019-09-10] MEDS: Piperacillin/Tazobactam 3.375 GM in 0.9 % Sodium Chloride Mini Bag 100 ML IVPB SCH ×3 (00:05→15:44)
[2019-09-10] MEDS ORDERED: *HR* LORazepam 2 MG/ML VIAL IVP ONE (02:06)
[2019-09-10 02:35] LABS: Basophils % 0.6 %; Eosinophils # 0.1 K/mcL (0.0-0.6); Eosinophils % 1.3 %; Hematocrit 27.6 % (35.3-44.9); Hemoglobin 9.1 g/dL (11.5-15.4); Immature Granulocytes % 0.6 % (0-4); Lymphocytes # 1.8 K/mcL (0.6-4.6); Lymphocytes % 32.8 %; Mean Corpuscular Hemoglobin 31.3 pg (28.0-33.3); Mean Corpuscular Volume 94.8 fL (83.0-100.0); Mean Platelet Volume 9.8 fL (9.4-12.4); Monocytes # 0.5 K/mcL (0.0-1.3); Monocytes % 9.6 %; Platelet Count 201 K/mcL (140-400); Red Blood Count 2.91 M/mcL (3.82-4.97); Red Cell Distribution Width 12.3 % (11.5-14.5); Segmented Neutrophils % 55.1 %
[2019-09-10 02:42] LABS: White Blood Count 5.4 K/mcL (4.3-11.1)
[2019-09-10 02:53] LABS: Alanine Aminotransferase 13 Units/L (7-52); Albumin 2.9 g/dL (3.5-5.7); Albumin/Globulin Ratio 1.1 (1.1-2.2); Alkaline Phosphatase 114 Units/L (34-104); Aspartate Amino Transferase 16 Units/L (13-39); BUN/Creatinine Ratio 13 (6-26); Bilirubin,Total 0.3 mg/dL (0.3-1.0); Blood Urea Nitrogen 7 mg/dL (6-20); Calcium 8.4 mg/dL (8.6-10.3); Carbon Dioxide 23 mEq/L (23-29); Chloride 110 mEq/L (98-107); Globulin 2.7 g/dL (2.4-3.5); Glucose 81 mg/dL (70-105); Osmolality,Calculated 289 (280-300); Potassium 3.2 mEq/L (3.5-5.1); Sodium 141 mEq/L (136-145); Total Protein 5.6 g/dL (6.4-8.9); eGFR For African Americans > 60 (> 60); eGFR For Non-African Americans > 60 (> 60)
[2019-09-10] MEDS: *HR* Heparin 5,000 UNIT/ML VIAL SQ SCH (05:33)
[2019-09-10] MEDS ORDERED: Acetaminophen 325 MG TABLET PO PRN (07:32)
[2019-09-11] MEDS: Piperacillin/Tazobactam 3.375 GM in 0.9 % Sodium Chloride Mini Bag 100 ML IVPB SCH ×3 (00:34→17:08)
[2019-09-11 05:04] LABS: Basophils % 0.5 %; Eosinophils # 0.1 K/mcL (0.0-0.6); Hematocrit 29.3 % (35.3-44.9); Hemoglobin 9.6 g/dL (11.5-15.4); Immature Granulocytes % 1.2 % (0-4); Lymphocytes # 2.1 K/mcL (0.6-4.6); Lymphocytes % 35.4 %; Mean Corpuscular HGB Conc 32.8 g/dL (31.6-35.5); Mean Corpuscular Hemoglobin 30.7 pg (28.0-33.3); Mean Corpuscular Volume 93.6 fL (83.0-100.0); Mean Platelet Volume 9.3 fL (9.4-12.4); Monocytes # 0.6 K/mcL (0.0-1.3); Monocytes % 10.5 %; Platelet Count 263 K/mcL (140-400); Red Blood Count 3.13 M/mcL (3.82-4.97); Red Cell Distribution Width 12.2 % (11.5-14.5); Segmented Neutrophils % 50.4 %
[2019-09-11 05:07] LABS: INR 1.1; Prothrombin Time 12.5 Seconds (9.4-12.1)
[2019-09-11 05:25] LABS: Platelet Estimate Normal (Normal); Reactive Lymphocytes Present (Not Present)
[2019-09-11 05:29] LABS: Alanine Aminotransferase 13 Units/L (7-52); Albumin 3.1 g/dL (3.5-5.7); Alkaline Phosphatase 108 Units/L (34-104); Aspartate Amino Transferase 12 Units/L (13-39); BUN/Creatinine Ratio 16 (6-26); Bilirubin,Total 0.3 mg/dL (0.3-1.0); Blood Urea Nitrogen 9 mg/dL (6-20); Calcium 8.4 mg/dL (8.6-10.3); Carbon Dioxide 23 mEq/L (23-29); Chloride 110 mEq/L (98-107); Glucose 96 mg/dL (70-105); Osmolality,Calculated 291 (280-300); Potassium 3.4 mEq/L (3.5-5.1); Sodium 141 mEq/L (136-145); Total Protein 6.1 g/dL (6.4-8.9); eGFR For African Americans > 60 (> 60); eGFR For Non-African Americans > 60 (> 60)
[2019-09-11 08:25] LABS: Mycoplasma pneumoniae IgG 0.43 U/L (<=0.09)
[2019-09-11] MEDS ORDERED: Aminoglycoside Consult 1 EACH MC ONE (08:49)
[2019-09-11] MEDS ORDERED: Lidocaine Viscous Oral Soln 15 ML SOLUTION MM PRN (09:09)
[2019-09-11] MEDS ORDERED: 0.9 % Sodium Chloride 500 ML IVC ONE (09:10)
[2019-09-11] MEDS: *HR* Midazolam HCl 5 MG/5 ML VIAL IVP PRN ×4 (09:50→10:05)
[2019-09-11] MEDS: *HR* FentaNYL (PF) 100 MCG/2 ML VIAL IVP PRN ×3 (09:50→10:00)
[2019-09-11] MEDS ORDERED: Nicotine 2 MG GUM BC PRN (12:46)
[2019-09-11] MEDS: Nicotine 21 MG PATCH.TD24 TD SCH (14:18)
[2019-09-11] MEDS: hydrOXYzine pamoate 25 MG CAPSULE PO PRN (19:49)
[2019-09-12] MEDS: Piperacillin/Tazobactam 3.375 GM in 0.9 % Sodium Chloride Mini Bag 100 ML IVPB SCH ×2 (00:30→09:14)
[2019-09-12 05:33] LABS: Basophils % 0.7 %; Eosinophils # 0.2 K/mcL (0.0-0.6); Eosinophils % 3.7 %; Hematocrit 30.4 % (35.3-44.9); Hemoglobin 9.9 g/dL (11.5-15.4); Immature Granulocytes % 1.3 % (0-4); Lymphocytes # 2.2 K/mcL (0.6-4.6); Lymphocytes % 41.4 %; Mean Corpuscular HGB Conc 32.6 g/dL (31.6-35.5); Mean Corpuscular Hemoglobin 30.7 pg (28.0-33.3); Mean Corpuscular Volume 94.4 fL (83.0-100.0); Mean Platelet Volume 8.8 fL (9.4-12.4); Monocytes # 0.7 K/mcL (0.0-1.3); Monocytes % 12.5 %; Neutrophils # 2.2 K/mcL (1.6-8.9); Platelet Count 310 K/mcL (140-400); Red Blood Count 3.22 M/mcL (3.82-4.97); Segmented Neutrophils % 40.4 %; White Blood Count 5.4 K/mcL (4.3-11.1)
[2019-09-12 05:55] LABS: Alanine Aminotransferase 12 Units/L (7-52); Albumin 3.1 g/dL (3.5-5.7); Alkaline Phosphatase 100 Units/L (34-104); Aspartate Amino Transferase 10 Units/L (13-39); BUN/Creatinine Ratio 16 (6-26); Bilirubin,Total 0.2 mg/dL (0.3-1.0); Blood Urea Nitrogen 9 mg/dL (6-20); Calcium 8.4 mg/dL (8.6-10.3); Carbon Dioxide 26 mEq/L (23-29); Chloride 106 mEq/L (98-107); Glucose 114 mg/dL (70-105); Osmolality,Calculated 290 (280-300); Potassium 3.9 mEq/L (3.5-5.1); Sodium 140 mEq/L (136-145); Total Protein 6.1 g/dL (6.4-8.9); eGFR For African Americans > 60 (> 60); eGFR For Non-African Americans > 60 (> 60)
[2019-09-12] MEDS: Nicotine 21 MG PATCH.TD24 TD SCH (09:14)
[2019-09-12] MEDS ORDERED: Isovue-370 500 ML BOTTLE IVP ONE (14:19)
[2019-09-12] MEDS ORDERED: Azithromycin 500 MG in 0.9 % Sodium Chloride 250 ML IVPB SCH (15:00)
[2019-09-12] MEDS: cefTRIAXone 2,000 MG in 0.9 % Sodium Chloride Mini Bag 100 ML IVPB SCH (15:15)
[2019-09-13 05:56] LABS: Basophils # 0.1 K/mcL (0.0-0.2); Basophils % 0.9 %; Eosinophils # 0.3 K/mcL (0.0-0.6); Eosinophils % 3.9 %; Hematocrit 32.1 % (35.3-44.9); Hemoglobin 10.9 g/dL (11.5-15.4); Lymphocytes # 2.4 K/mcL (0.6-4.6); Lymphocytes % 36.8 %; Mean Corpuscular Hemoglobin 30.9 pg (28.0-33.3); Mean Corpuscular Volume 90.9 fL (83.0-100.0); Mean Platelet Volume 8.5 fL (9.4-12.4); Monocytes # 0.8 K/mcL (0.0-1.3); Monocytes % 12.7 %; Neutrophils # 2.9 K/mcL (1.6-8.9); Platelet Count 375 K/mcL (140-400); Red Blood Count 3.53 M/mcL (3.82-4.97); Red Cell Distribution Width 12.5 % (11.5-14.5); Segmented Neutrophils % 43.7 %; White Blood Count 6.6 K/mcL (4.3-11.1)
[2019-09-13 06:18] LABS: Alanine Aminotransferase 11 Units/L (7-52); Albumin 3.3 g/dL (3.5-5.7); Albumin/Globulin Ratio 1.1 (1.1-2.2); Alkaline Phosphatase 101 Units/L (34-104); Aspartate Amino Transferase 10 Units/L (13-39); BUN/Creatinine Ratio 23 (6-26); Bilirubin,Total 0.2 mg/dL (0.3-1.0); Blood Urea Nitrogen 14 mg/dL (6-20); Calcium 8.5 mg/dL (8.6-10.3); Carbon Dioxide 28 mEq/L (23-29); Chloride 103 mEq/L (98-107); Glucose 117 mg/dL (70-105); Osmolality,Calculated 294 (280-300); Potassium 3.5 mEq/L (3.5-5.1); Sodium 141 mEq/L (136-145); Total Protein 6.3 g/dL (6.4-8.9); eGFR For African Americans > 60 (> 60); eGFR For Non-African Americans > 60 (> 60)
[2019-09-13 07:28] VITALS: BP 103/72
[2019-09-13] MEDS: Nicotine 21 MG PATCH.TD24 TD SCH (08:53)
[2019-09-13] MEDS: cefTRIAXone 2,000 MG in 0.9 % Sodium Chloride Mini Bag 100 ML IVPB SCH (08:54)
== END 2019-09-13 12:04 | disposition home or self-care (01) | DRG 720 ==
LOC: EMEROOARM 21:28 → 2NENU 21:28 → SUATTDRO 09-08 00:12 → 2NENU 09-08 00:44 → SUATTDRO 09-08 17:10
PROVIDERS: ADMIT Family Medicine; ATTEND Internal Medicine